=== PATIENT | male | born 1930 | race Caucasian/White ===

== ENCOUNTER 2017-01-27 01:20 | Inpatient (IN) | payer MEDICARE ==
[2017-01-27] VITALS (62 sets, daily range): BP systolic 61–138; BP diastolic 29–92; BMI 16.5
[~2017-01-27] VITALS: Ht 177.8 cm; Wt 60.0 kg
[2017-01-27 02:22] LABS: BASOPHILS 0 % (0-2); EOSINOPHILS 0 % (0-7); HEMOGLOBIN 15.4 g/dL (13.5-17.5); IMMATURE GRANULOCYTES 0.4 % (0-5); MCH 34.6 pg (26.0-34.0); MCHC 34.2 g/dL (31.0-37.0); MCV 101.1 fL (80.0-100.0); MEAN PLATELET VOLUME 10.7 fL (7.4-10.4); MONOCYTES 2.8 % (2-11); NEUTROPHILS 92.8 % (40-80); RBC 4.45 10x6/uL (4.20-6.10); RDW 14.6 % (11.5-14.5); WBC 7.7 10x3/uL (4.8-10.8)
[2017-01-27 02:26] LABS: PLATELET COUNT 228 10x3/uL (130-400)
[2017-01-27 02:46] LABS: ALBUMIN 2.9 g/dL (3.4-5.0); ANION GAP 20.8 mmol/L (8-16); BILIRUBIN - TOTAL 0.66 mg/dL (0.2-1.3); CALCIUM 9.2 mg/dL (8.5-10.1); CARBON DIOXIDE 25.6 mmol/L (21.0-32.0); CREATININE - SERUM 2.3 mg/dL (0.6-1.3); POTASSIUM - SERUM 4.4 mmol/L (3.5-5.1)
[2017-01-27 02:55] LABS: MAGNESIUM - SERUM 2.5 mg/dL (1.8-2.4)
[2017-01-27 02:59] LABS: TROPONIN-I 0.095 ng/mL (0.000-0.060)
[2017-01-27 03:04] LABS: APPEARANCE CLOUDY (CLEAR); BILIRUBIN NEGATIVE (NEGATIVE); COLOR DK YELLOW (YELLOW); GLUCOSE NEGATIVE (NEGATIVE); KETONE NEGATIVE (NEGATIVE); NITRITE NEGATIVE (NEGATIVE); PROTEIN NEGATIVE (NEGATIVE); SPECIFIC GRAVITY 1.025 (1.005-1.020); UROBILINOGEN NORMAL (NORMAL)
[2017-01-27 03:13] LABS: BACTERIA MANY /hpf (NONE SEEN); EPITHELIAL CELLS 0-5 /hpf (0-5); WHITE CELLS - URINE >50 /hpf (0-5)
[2017-01-27 03:14] LABS: GRANULAR CAST 0-5 /lpf (NONE SEEN); HYALINE CAST 0-5 /lpf (NONE SEEN)
--- NOTE | 2017-01-27 06:35 | NUR ---
ARRIVED TO ROOM VIA STRETCHER WITH 2 ER NURSES AND . ON 100% NRB MASK O2. TRANSFERRED TO ICU BED AND OLD SHEETS REMOVED FROM UNDER HIM. HAD A SMALL, LT BROWN PASTY BM. CLEANSED PERINEAL AREA. BLANCHABLE REDDENED SKIN TO BOTTOM PORTION OF TAILBONE NOTED. DUSKY COLORED NAILBEDS. ATTATCHES TO CONTINUOUS CARDIAC MONITORING AND FIRST SET OF VITALS ASSESSED AT 0645. RT HAND 20G PIV INTACT INFUSING LEVAQUIN IV @ 100ML/HR. RT AC 18G PIV INTACT WITH CARDIZEM @ 10MG/HR. AFIB IN THE 110'S WITH MULTIPLE PAC'S NOTED. UNABLE TO OBTAIN O2 SAT. WILL GET DIFFERENT MONITORING EQUIPMENT FOR THE EAR TO OBTAIN O2 SAT. 0710: UNABLE TO GET O2 SATS. David.Roberta ACOSTA MADE AWARE. BEGAN TO SHALLOW BREATHE AND HARD TO TELL IF HE WAS BECOMING APNIC. CRASH CART TO ROOM AND WILL OBTAIN ABG'S. BREATHING IRREGULAR BUT IN THE 40'S AFTER APNIC APPEARING EPISODE. AT BEDSIDE AND OBTAINING HEALTH HISTORY FROM HER. PATIENT NOT SPEAKING BUT PULLING AT BURCH AND MONITORING EQUIPMENT. 0730: REPORT GIVEN TO FILIBERTO ALTAMIRANO.
[2017-01-27 08:30] LABS: CKMB 3.7 U/L (0.0-3.6); CREATINE KINASE 322 UL (21-232); TROPONIN-I 0.152 ng/mL (0.000-0.060)
[2017-01-27 08:31] LABS: ANION GAP 25.6 mmol/L (8-16); CARBON DIOXIDE 20.5 mmol/L (21.0-32.0); CREATININE - SERUM 2.9 mg/dL (0.6-1.3); PHOSPHOROUS 6.5 mg/dL (2.5-4.9); POTASSIUM - SERUM 5.1 mmol/L (3.5-5.1)
[2017-01-27] MEDS ORDERED: BAYER CHEWABLE81 MG PO (08:32)
[2017-01-27] MEDS ORDERED: PROTONIX40 MG PO (08:32)
[2017-01-27] MEDS ORDERED: ISOSORBIDE MONO30 M1 PO (08:33)
[2017-01-27] MEDS ORDERED: STOOL SOFTENER240 MG PO (08:34)
[2017-01-27] MEDS ORDERED: CARAFATE1 G PO (08:34)
[2017-01-27] MEDS ORDERED: PEPCID20 MG PO (08:36)
[2017-01-27] MEDS ORDERED: VITAMIN B-121000 MCG PO (08:40)
[2017-01-27] MEDS ORDERED: VITAMIN B650 MG PO (08:41)
[2017-01-27] MEDS ORDERED: VITAMIN D31000 UNIT PO (08:42)
[2017-01-27 14:08] LABS: CKMB 2.6 U/L (0.0-3.6); CREATINE KINASE 107 UL (21-232)
[2017-01-27 14:09] LABS: TROPONIN-I 0.205 ng/mL (0.000-0.060)
--- NOTE | 2017-01-27 14:25 | NUR ---
DR. GALAN SPEAKING WITH DR. YANES WHO STATES HE WILL BE AROUND TO SEE PT AGAIN THIS EVENING.
--- NOTE | 2017-01-27 14:31 | HP ---
PATIENT: ARMAND SIMMONS MEDICAL RECORD: [id number] ACCOUNT: [id number] LOCATION:[facility] Marty.CV02 : 30 ADMISSION DATE: 01/27/17 HISTORY AND PHYSICAL EXAMINATION HISTORY OF PRESENT ILLNESS: Mr. Simmons is an 86-year-old white male that presents to the Emergency Room with mental status changes, weakness, and shortness of breath. He was found to be in atrial fibrillation with rapid ventricular response and admitted to the ICU. CT of his chest was performed, which reveals no PEs, changes compatible with CHF and possible free air versus dilated loops of bowel under the right hemidiaphragm. His lactic acid is elevated. His cardiac enzymes are elevated. He is now in a multifocal atrial tachycardia with frequent PVCs. He is on pressors including Levophed and I have added dobutamine. His lateral KUB has been performed and pending at this time. I have discussed with his and his children are en route from [place]. His prognosis is guarded at this time. 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 PREVIOUS SURGERIES: Include CABG, gangrene gallbladder 2-3 years ago, hip surgery from fracture, shoulder surgery, and previous hernia surgery as a young man. ALLERGIES: None known. HOME MEDICATIONS: Include pantoprazole 40 mg once a day, baby aspirin a day, isosorbide mononitrate 30 mg once a day, docusate daily, Carafate daily a.c. and at bedtime, famotidine 20 mg twice a day, B12 1000 mg once a day, B6 50 mg twice a day, and vitamin D 4000 international units a day. FAMILY HISTORY: Noncontributory. SOCIAL HISTORY: The patient is . He has been a smoker, but quit 30 years ago. Seldom drinks. REVIEW OF SYSTEMS: Two-three days ago, states he was doing well. The last few days, he has deteriorated with overall weakness, shortness of breath, and difficulties communicating. She is unaware of any fever at home. No vomiting or diarrhea. Decreased oral intake. PHYSICAL EXAMINATION: GENERAL: Ill-appearing cachectic elderly male in moderate distress. HEENT: Sclerae nonicteric. Mucous membranes are dry. NECK: Soft and supple. HEART: Regular with mild tachycardia with multiple extrasystoles. LUNGS: Diminished breath sounds. ABDOMEN: Soft. LOWER EXTREMITIES: Reveal no edema. IMPRESSION: 1. Respiratory failure, probably, acute on chronic. 2. Cardiac arrhythmia. HISTORY AND PHYSICAL [id number] ARMAND SIMMONS 3. Probable sepsis. 4. Ruling out perforated bowel. 5. Known coronary artery disease. 6. Chronic obstructive pulmonary disease. 7. History of cerebrovascular accident and coronary artery disease. 8. Hypotension. PLAN: ICU. I have discussed with , she is waiting for family to get here to discuss code status. Cultures are done. Lateral decubs are ordered and awaiting those. Cardiology consult and pulmonary consult with Dr. Diaz. Prognosis is guarded at this time. TRANSINT:[id number] Voice Confirmation ID: [id number] DOCUMENT ID: [id number] GLADYS MATTSON DO at 1431 CC: [id number] DICTATION DATE: 01/27/1751 MACHINE GROUP LEADER: 01/27/17 1159 ADM IN [facility] [address] [id number]
--- NOTE | 2017-01-27 14:35 | NUR ---
NGT PLACEMENT PER ORDER OF JENNIFER JALLOH AND JOAQUÍN. XRAY AT BEDSIDE.
--- NOTE | 2017-01-27 14:50 | NUR ---
DR. GALAN REVIEWED CXR. NGT REMOVED DUE TO INCORRECT PLACEMENT.
--- NOTE | 2017-01-27 15:15 | NUR ---
OGT PLACED PER BELINDA ALTAMIRANO. PLACEMENT CONFIRMED BY GASTRIC CONTENT ASPIRATION.
--- NOTE | 2017-01-27 15:30 | NUR ---
DR. DREW PAGED THROUGH ANSWERING SERVICE.
--- NOTE | 2017-01-27 18:10 | NUR ---
LINENS CHANGED. PT CLEANED OF SMEAR OF BM.
--- NOTE | 2017-01-27 18:55 | NUR ---
SEE MAR FOR MED ADMINISTRATIONS. VASOPRESSIN TITRATED FOR BP.
--- NOTE | 2017-01-27 19:15 | NUR ---
REPORT RECVD. CARE ASSUMED. INITIAL ASSMNT COMPLETED. SEE FLOWSHEET FOR ALL FINIDNGS. LETHARGIC. AROUSES TO VOICE. NON VERBAL. PERRLA. REACHES FOR NRB MASK. RESTRAINTS IN USE. RESP SHALLOW AND TACHY. SPO2 DIFFICULT TO TRACK. 91% ON 15LPM NRB. LUNGS WITH RALES THRU OUT. DIM IN BASES. UCAFIB WITH FREQ PVCS ON THE MONITOR. HYPOTENSIVE. PRESSOR SUPPORT IN PROGRESS. IVF TO RIGHT SC CVL. PULSES WEAK WITH DOPPLER. SCDS IN USE. AFEBRILE. ABD SOFT. OGT TO LIWS. BOWEL SOUNDS SCANT. F/C PATENT WITH MINIMAL CONCENTRATED UOP. NO S/S OF DISCOMFORT. HOB UP. CONT CURRENT POC.
--- NOTE | 2017-01-27 19:19 | NUR ---
NOTIFIED DR. DREW OF CURRENT VITALS AND LAB VALUES AND MEDICATION RATES . NO NEW ORDERS RECEIVED. VERIFIED THAT FLUID BOLUS ORDER IS CORRECT. STATES THAT IT IS.
--- NOTE | 2017-01-27 20:16 | NUR ---
FAMILY AT BEDSIDE. UPDATE GIVEN.
[2017-01-27 20:59] LABS: CALC OSMOLALITY 327 mosm/kg (275-300); CARBON DIOXIDE 19.7 mmol/L (21.0-32.0); CHLORIDE - SERUM 112 mmol/L (98-107); CKMB 5.7 U/L (0.0-3.6); CREATININE - SERUM 2.4 mg/dL (0.6-1.3); GLUCOSE 164 mg/dL (74-106); SODIUM 149 mmol/L (136-145); UREA NITROGEN 90 mg/dL (7-18); eGFR NON AFRICAN AMERICAN 27 mL/min (90-120)
[2017-01-27 21:02] LABS: CALCIUM 7.9 mg/dL (8.5-10.1); CREATINE KINASE 237 UL (21-232)
[2017-01-27 21:03] LABS: TROPONIN-I 0.163 ng/mL (0.000-0.060)
--- NOTE | 2017-01-27 23:15 | NUR ---
REASSESSMENT COMPLETED. SEE FLOWSHEET FOR ALL FINIDNGS. LETHARGIC. AROUSES TO VOICE. NON VERBAL. PERRLA. REACHES FOR NRB MASK. RESTRAINTS IN USE. RESP SHALLOW AND TACHY. SPO2 DIFFICULT TO TRACK. 91% ON 15LPM NRB. LUNGS WITH RALES THRU OUT. DIM IN BASES. UCAFIB WITH FREQ PVCS ON THE MONITOR. HYPOTENSIVE. PRESSOR SUPPORT IN PROGRESS. IVF TO RIGHT SC CVL PULSES WEAK WITH DOPPLER. SCDS IN USE. AFEBRILE. ABD SOFT. OGT TO LIWS. BOWEL SOUNDS SCANT. F/C PATENT WITH MINIMAL CONCENTRATED UOP. NO S/S OF DISCOMFORT. HOB UP. CONT CURRENT POC.
[2017-01-28] VITALS (92 sets, daily range): BP systolic 90–137; BP diastolic 52–92; Ht 177.8 cm; Wt 60.0 kg
--- NOTE | 2017-01-28 01:15 | NUR ---
TURNED AND REPOSITIONED. ORAL CARE PROVIDED. NPO. LEVOPHED TITRATION IN PROGRESS. UCAFIB SEEN. SYS B/P AND CVP WITHIN PARAMETERS. HOB UP. CONT CURRENT POC.
--- NOTE | 2017-01-28 05:10 | NUR ---
REPOSITIONED. REMAINS ON PRESSOR SUPPORT. ABGS IMPROVED. REMAINS LETHARGIC AND NON VERBAL. HOB UP. CONT CURRENT POC.
[2017-01-28 06:23] LABS: ALBUMIN 1.8 g/dL (3.4-5.0); ALKALINE PHOSPHATASE 45 U/L (46-116); ALT (SGPT) 19 U/L (10-68); BILIRUBIN - TOTAL 0.45 mg/dL (0.2-1.3); CALC OSMOLALITY 324 mosm/kg (275-300); CALCIUM 7.1 mg/dL (8.5-10.1); CHLORIDE - SERUM 112 mmol/L (98-107); CKMB 5.7 U/L (0.0-3.6); CREATINE KINASE 206 UL (21-232); CREATININE - SERUM 1.5 mg/dL (0.6-1.3); GLUCOSE 226 mg/dL (74-106); MAGNESIUM - SERUM 1.7 mg/dL (1.8-2.4); PHOSPHOROUS 2.5 mg/dL (2.5-4.9); PROTEIN - SERUM 5.6 g/dL (6.4-8.2); SODIUM 149 mmol/L (136-145); TROPONIN-I 0.225 ng/mL (0.000-0.060); UREA NITROGEN 73 mg/dL (7-18); eGFR NON AFRICAN AMERICAN 47 mL/min (90-120)
[2017-01-28 07:15] LABS: BASOPHILS 0 % (0-2); EOSINOPHILS 0.9 % (0-7); IMMATURE GRANULOCYTES 2.5 % (0-5); LYMPHOCYTES 4.9 % (15-50); MCH 33.4 pg (26.0-34.0); MCHC 32.8 g/dL (31.0-37.0); MEAN PLATELET VOLUME 10.9 fL (7.4-10.4); MONOCYTES 2.2 % (2-11); NEUTROPHILS 89.5 % (40-80); PLATELET COUNT 190 10x3/uL (130-400); RDW 14.7 % (11.5-14.5); WBC 6.5 10x3/uL (4.8-10.8)
[2017-01-28 07:32] LABS: HEMOGLOBIN 11.8 g/dL (13.5-17.5); RBC 3.53 10x6/uL (4.20-6.10)
--- NOTE | 2017-01-28 08:00 | NUR ---
OGT IN PT'S MOUTH. NOT IN CORRECT POSITION. D/C'D. PT TOLERATED WELL.
--- NOTE | 2017-01-28 09:01 | NUR ---
DR. YANES AT BEDSIDE SPEAKING WITH PT'S AND DAUGHTER.
--- NOTE | 2017-01-28 10:00 | NUR ---
RIGHT NARE NGT PLACED PER MD ORDERS. PT TOLERATED WELL. PLACEMENT VERIFIEID WITH AIR BOLUS. THICK BROWN LIQUID NOTED IN SUCTION CANNISTER. APPROX 400CC OF GASTRIC FLUID RETURNED. PLACED TO LIS. 16FR USED.
--- NOTE | 2017-01-28 11:30 | NUR ---
* How many steps to enter\exit or inside your home? 1 0 * [facility] * [facility] * Preadmission Environment Home with Family 0 * ADLs Partial Dependent 0 * Partial ADLs (Assistance needed) Ambulation Bathing Dressing Medication Management Toileting Transfers 0 * Equipment Bedside Commode Cane Hospital Bed Rolling Walker Shower Chair Wheelchair 0 * List name and contact numbers for known caregivers / representatives who currently or will assist patient after discharge: Spouse - Calli [phone] DIL - Hamlet [phone] 0 * Additional services required to return to the preadmission environment? Yes 0 * Can the patient safely return to the preadmission environment? Yes 0 * Has this patient been hospitalized within the prior 30 days at any hospital? No Patient Name: ARMAND BAILEY Admission Status: ER Accout number: [id number] Admission Date: 01-27-2017 : 1930 Admission Diagnosis: Attending: GLADYS MATTSON Current LOS: 1 Planned Disposition: Home with Home Health Primary Insurance: [employer] Discharge Planning Comments: CM met with patient, spouse & daughter in law to assess dc plans/needs. Spouse reports patient lives at home with her. She states her son & his family also live in the home. Their daughter in law, Hamlte, is a home health RN. He has all necessary DME at home including a hospital bed, WC, RW, BSC, & Shower Bench. They are interested in home health services at discharge. Discussed [facility] options - they do not want to transfer to [facility] but prefer to stay here at [facility] under his Medicare Benefits. CM will follow & assist as needed. Supervisor Shuttle Veneering: Ayana Chew
--- NOTE | 2017-01-28 14:49 | NUR ---
Spoke with Seema @ [facility] Expeditor [facility] - notified her patient/family does not want to transfer to [place].
--- NOTE | 2017-01-28 16:20 | NUR ---
DR. AMBROCIO AT BEDSIDE TPM CHANGED TO VVI 60 VMA 10 PT IS V-SENSING. HR 88. SINUS RHYTHM WITH PVCs
--- NOTE | 2017-01-28 19:00 | NUR ---
Received patient resting in bed with eyes closed, assessment completed per flowsheet. Patient confused/disoriented to time/place/situation, calm and follows commands. R eye slightly cloudy with brisk response @ 4mm, L eye cloudy with pupil not visible. NGT R nare to LIWS, green mucoid drainage. S1/S2 noted Uncontrolled afib with HR 126, irregular. Breathing is shallow and unlabored on 5L via NC with O2 sat 97%, Crackles noted bilateral upper and mid with diminished lower. Abdomen is distended, bowel sounds Hypoactive x4. Malik secured in place, scant concentrated yellow urine. Full ROM all extremities with weakness noted, all pulses detected by doppler with cap refill < 3 sec. R subclavian CVL dressing CDI, D5W @ 75ml/hr / Dobutamine @ 5mcg/kg/min / Vasopressin @ 0.04 unit/min / Norepinephrine @ 6 mcg/min. Wrist restraints in use to protect safety, patient pulling at lines/tubes. Oral care and repositioning provided, no further needs at this time. All VSS and will continue to monitor.
--- NOTE | 2017-01-28 21:00 | NUR ---
HS meds given without difficulty, patient status unchanged from previous assessment. Patient remains disoriented, calm and follows commands. Patient shakes head "no" when asked about pain, repositioned for comfort. Will continue to monitor.
--- NOTE | 2017-01-28 23:00 | NUR ---
Reassessment completed per flowsheet, patient resting in bed with eyes closed. Patient disoriented to time/place/situation with garbled speech, calm and cooperative. S1/S2 noted Uncontrolled Afib with PVC and HR 112, irregular. Breathing is shallow on 5L via NC with O2 sat 98%, crackles noted bilateral upper and mid with diminished lower. Abdomen is distended with bowel sounds hypoactive x4, non-tender. All pulses detected by doppler with cap refill < 3 sec, full ROM all extremities with moderate weakness noted. Oral care provided, patient repositioned for comfort. No further needs at this time, all VSS and will continue to monitor.
[2017-01-29] VITALS (93 sets, daily range): BP systolic 90–137; BP diastolic 52–95
--- NOTE | 2017-01-29 01:00 | NUR ---
Patient resting in bed with eyes closed, breathing is shallow on 5L via NC with O2 sat 95%. Uncontrolled afib with PVC on monitor, S1/S2 noted irregular. Patient attempts to speak, extremely soft and difficult to hear. Denies pain or other needs at this time, all VSS and will continue to monitor.
--- NOTE | 2017-01-29 03:00 | NUR ---
Reassessment completed per flowsheet, patient resting in bed with eyes closed. Patient appears to be more alert and communicates in limited fashion. Attempts to speak but voice is very quiet, continues to have moments of confusion. NGT secured to LIWS, scant green drainage noted. S1/S2 noted Uncontrolled Afib with PVC and HR 122 on telemetry. Breathing is shallow on 5L via NC with O2 sat 96%, crackles noted bilateral upper and mid with diminished lower. All pulses detected with doppler, cap refill < 3 sec with skin cool/dry to touch. Oral care provided, patient repositioned for comfort. Denies pain or other needs at this time, all VSS and will continue to monitor.
--- NOTE | 2017-01-29 04:45 | NUR ---
Patient Vasopressin out, none available on unit. Vasopressin unit mixed to ordered concentration by Cyrus ALTAMIRANO. Will notify pharmacy in AM.
--- NOTE | 2017-01-29 05:00 | NUR ---
Patient resting in bed with eyes open, nods head to respond to yes/no questions appropriately. Oral care provided, patient repositioned for comfort. Patient denies further needs at this time, all VSS and will continue to monitor.
--- NOTE | 2017-01-29 06:00 | NUR ---
AM labs collected without difficulty, patient laying in bed with eyes open. Patient repositioned for comfort, no further needs at this time. All VSS and will continue to monitor.
[2017-01-29 06:30] LABS: BASOPHILS 0 % (0-2); EOSINOPHILS 0.3 % (0-7); HEMATOCRIT 32.1 % (42.0-54.0); HEMOGLOBIN 10.8 g/dL (13.5-17.5); IMMATURE GRANULOCYTES 1.3 % (0-5); LYMPHOCYTES 7.3 % (15-50); MCH 34.3 pg (26.0-34.0); MCHC 33.6 g/dL (31.0-37.0); MCV 101.9 fL (80.0-100.0); MEAN PLATELET VOLUME 11.1 fL (7.4-10.4); MONOCYTES 2.2 % (2-11); NEUTROPHILS 88.9 % (40-80); PLATELET COUNT 153 10x3/uL (130-400); RBC 3.15 10x6/uL (4.20-6.10); RDW 14.7 % (11.5-14.5); WBC 6.3 10x3/uL (4.8-10.8)
[2017-01-29 07:14] LABS: CALCIUM 7.5 mg/dL (8.5-10.1); CARBON DIOXIDE 27.8 mmol/L (21.0-32.0); CHLORIDE - SERUM 109 mmol/L (98-107); MAGNESIUM - SERUM 1.8 mg/dL (1.8-2.4); PRO BNP 6081 pg/mL (0-450); SODIUM 146 mmol/L (136-145)
[2017-01-29 07:16] LABS: CALC OSMOLALITY 305 mosm/kg (275-300); CREATININE - SERUM 0.8 mg/dL (0.6-1.3); GLUCOSE 141 mg/dL (74-106); TROPONIN-I 0.199 ng/mL (0.000-0.060); UREA NITROGEN 49 mg/dL (7-18); eGFR NON AFRICAN AMERICAN > 90 mL/min (90-120)
[2017-01-29 07:17] LABS: PHOSPHOROUS 1.4 mg/dL (2.5-4.9); POTASSIUM - SERUM 2.7 mmol/L (3.5-5.1)
--- NOTE | 2017-01-29 07:40 | NUR ---
SPOKE WITH PEEWEE PRABHAKAR ASSET PROTECTION DETECTIVE FOR DR. GUEVARA, INFORMED OF K+ AND PHOS LAB RESULTS, NEW ORDER RECEIVED FOR ELECTROLYTE PROTOCOL.
--- NOTE | 2017-01-29 09:40 | NUR ---
DR. GUEVARA HERE IN TO SEE PATIENT, AT BEDSIDE.
--- NOTE | 2017-01-29 10:58 | NUR ---
DR. LI HERE IN TO SEE PATIENT.
--- NOTE | 2017-01-29 11:14 | OP ---
PATIENT NAME: ARMAND BAILEY MEDICAL RECORD: [id number] :30 LOCATION:D.[facility]I D.CV02 ADMISSION DATE:01/27/17 SURGEON: KAIA YANES MD DATE OF OPERATION: 01/27/2017 PREOPERATIVE DIAGNOSES: 1. Need for IV access. 2. Sepsis. 3. Pneumonia. 4. Atrial fibrillation. 5. Coronary artery disease. POSTOPERATIVE DIAGNOSES: 1. Need for IV access. 2. Sepsis. 3. Pneumonia. 4. Atrial fibrillation. 5. Coronary artery disease. PROCEDURE IN DETAIL: Right subclavian vein triple-lumen central venous line placement. SURGEON: Kaia Yanes MD REPORT OF PROCEDURE: The patient's right chest was prepped and draped in sterile fashion, 3 cc of 1% lidocaine was infused into the subcutaneous tissues. A needle was used to cannulate the right subclavian vein. The guidewire was advanced with ease. Over this wire, a dilator was placed followed by the triple lumen catheter. The catheter aspirated nonpulsatile dark blood and flushed easily in all 3 ports. This was sutured into place with 3-0 silk ties and dressed appropriately. COMPLICATIONS: None. CONDITION: Stable. ANESTHESIA: Local. BLOOD LOSS: Minimal. Procedure done at the bedside. TRANSINT:[id number] Voice Confirmation ID: [id number] DOCUMENT ID: [id number] KAIA YANES MD at 1114 CC: [id number] DICTATION DATE: 01/27/17 1401 AUTO INSPECTION SPECIALIST: 01/27/17 1433 ADM IN [id number] [place] [address]
--- NOTE | 2017-01-29 11:41 | NUR ---
SPOKE WITH ON PHONE AND SHE IS ON HER WAY TO HOSPITAL TO SIGN CONSENT FOR BRONCHOSCOPY.
--- NOTE | 2017-01-29 12:31 | NUR ---
ZOFRAN 4MG GIVEN PER MD ORDER PRIOR TO BRONCHOSCOPY.
--- NOTE | 2017-01-29 13:04 | NUR ---
NOTIFIED DR. YANES PER REQUEST OF DR. LI THAT NGT IS COILED IN HERNIA PER XRAY, NO FURTHER ORDERS RECEIVED FROM DR. YANES.
--- NOTE | 2017-01-29 15:00 | NUR ---
PATIENT REPOSITION FOR COMFORT AND SKIN CARE. NO DISTRESS NOTED. CALL LIGHT WIHTIN REACH, BED IN LOW POSITION.
--- NOTE | 2017-01-29 17:00 | NUR ---
NO CHANGES IN CONDITION. BURCH INTACT. CVL INTACT AND PATIENT.
[2017-01-29 18:17] LABS: CALC OSMOLALITY 300 mosm/kg (275-300); CALCIUM 7.6 mg/dL (8.5-10.1); CARBON DIOXIDE 28.7 mmol/L (21.0-32.0); CHLORIDE - SERUM 110 mmol/L (98-107); CREATININE - SERUM 0.8 mg/dL (0.6-1.3); GLUCOSE 119 mg/dL (74-106); SODIUM 145 mmol/L (136-145); UREA NITROGEN 42 mg/dL (7-18); eGFR NON AFRICAN AMERICAN > 90 mL/min (90-120)
[2017-01-29 18:19] LABS: POTASSIUM - SERUM 3.9 mmol/L (3.5-5.1)
[2017-01-29 18:21] LABS: PHOSPHOROUS 1.2 mg/dL (2.5-4.9)
--- NOTE | 2017-01-29 19:00 | NUR ---
report received and assessment completed. see flowsheet for full details. pt is on vasopressin, and dobutamine drips at this time. currently in controlled afib. pt is now a DNR. hypoactive bowel sounds at this time. pt is on lis via ngt in right nare. will monitor closely throughout shift
--- NOTE | 2017-01-29 21:00 | NUR ---
2100 MEDS GIVEN. WILL COONTINUE TO MONITOR
--- NOTE | 2017-01-29 21:00 | NUR ---
REPORT RECEIVED AND ASSESSMENT COMPLETED. SEE FLOWSHEET FOR FULL DETAILS. PT IS CONFUSED AND A LITTLE LETHARGIC. DENIES PAIN AT THIS TIME. NGT RIGHT NARE LIS. BOWEL SOUNDS ACTIVE. PT IS A DNR. AFIB AT THIS TIME. WILL MONITOR CLOSELY THROUGHOUT SHIFT.
--- NOTE | 2017-01-29 23:00 | NUR ---
REASSESSMENT COMPLETED. SEE FLOWSHEET FOR FULL DETAILS. PT NOW OFF VASOPRESSIN. WILL CONTINUE TO TITRATE OFF MEDS TOLERATED.
[2017-01-30] VITALS (25 sets, daily range): BP systolic 101–149; BP diastolic 55–94
--- NOTE | 2017-01-30 01:00 | NUR ---
NO CHANGES IN STATUS AT THIS TIME. PT REPOSITIONED FOR COMFORT. WILL CONTINUE TO MONITOR
--- NOTE | 2017-01-30 03:00 | NUR ---
REASSESSMENT COMPLETED SEE FLOWSHEET FOR FULL DETAILS
--- NOTE | 2017-01-30 05:00 | NUR ---
NO CHANGES IN STATUS AT THIS TIME. WILL CONTINUE TO MONITOR
--- NOTE | 2017-01-30 06:00 | NUR ---
PT PULLED NG TUBE OUT DESPITE RESTRAINTS. WILL ATTEMPT TO REPLACE
[2017-01-30 06:47] LABS: BASOPHILS 0 % (0-2); EOSINOPHILS 0.7 % (0-7); HEMATOCRIT 35.1 % (42.0-54.0); HEMOGLOBIN 11.1 g/dL (13.5-17.5); IMMATURE GRANULOCYTES 0.4 % (0-5); MCH 31.1 pg (26.0-34.0); MCHC 31.6 g/dL (31.0-37.0); MEAN PLATELET VOLUME 10.5 fL (7.4-10.4); MONOCYTES 3.6 % (2-11); NEUTROPHILS 87.3 % (40-80); PLATELET COUNT 141 10x3/uL (130-400); RBC 3.57 10x6/uL (4.20-6.10); RDW 14.4 % (11.5-14.5); WBC 5.5 10x3/uL (4.8-10.8)
[2017-01-30 06:51] LABS: MCV 98.3 fL (80.0-100.0)
[2017-01-30 07:14] LABS: CALC OSMOLALITY 292 mosm/kg (275-300); CALCIUM 7.9 mg/dL (8.5-10.1); CARBON DIOXIDE 27.6 mmol/L (21.0-32.0); CHLORIDE - SERUM 109 mmol/L (98-107); CREATININE - SERUM 0.7 mg/dL (0.6-1.3); GLUCOSE 104 mg/dL (74-106); MAGNESIUM - SERUM 1.6 mg/dL (1.8-2.4); POTASSIUM - SERUM 3.7 mmol/L (3.5-5.1); SODIUM 144 mmol/L (136-145); eGFR NON AFRICAN AMERICAN > 90 mL/min (90-120)
--- NOTE | 2017-01-30 07:15 | NUR ---
PT ALERT, VSS, O2 5L OXYMISER, NGT LIS DARK OUTPUT, RIGHT SUBCLAVIAN CVL INFUSING, CDI, BURCH IN PLACE, REPOSITIONED, DENIES PAIN, SEE SHIFT ASSESSMENT
[2017-01-30 07:26] LABS: PHOSPHOROUS 1.9 mg/dL (2.5-4.9); UREA NITROGEN 30 mg/dL (7-18)
--- NOTE | 2017-01-30 09:20 | NUR ---
PT REPOSITIONED, VSS, NO SIGNS OF PAIN, ELECTROLYTES INFUSING PER ELECTROLYTE PROTOCOL, WILL CONTINUE TO MONITOR
--- NOTE | 2017-01-30 09:41 | NUR ---
Nutrition Follow Up: Chart reviewed. Pt continues NPO. NGT to LIS. +BM 01/27/17. Meds and labs reviewed. Rec advancing diet if/when medically feasible. If diet unable to advance within the next 24 hours rec start nutritional support. RD following.
--- NOTE | 2017-01-30 11:21 | NUR ---
TOTAL BED BATH AND LINEN CHANGE DONE, VSS, DENIES PAIN, CALL LIGHT WITHIN REACH, SEE REASSESSMENT FLOWSHEET
--- NOTE | 2017-01-30 13:00 | NUR ---
PT REPOSITIONED, VSS, DENIES PAIN, CONTRAST PER NGT, WILL CONTINUE TO MONITOR
--- NOTE | 2017-01-30 13:57 | NUR ---
PT TO CT WITH STAFF
--- NOTE | 2017-01-30 15:04 | NUR ---
PT REPOSITIONED, VSS, NGT TO LIS WHEN RETURNED FROM CT, CONTINUES IN AFIB, NO SIGNS OF PAIN, WILL CONTINUE TO MONITOR
[2017-01-30 15:25] LABS: ACID FAST SMEAR Negative (()); AFB SPECIMEN PROCESSING Concentration (()); FUNGUS STAIN Final report (())
--- NOTE | 2017-01-30 17:13 | NUR ---
PT REPOSITIONED, VSS, NO SIGNS OF PAIN, AT BEDSIDE FOR VISITATION, NO CHANGES NOTED, WILL CONTINUE TO MO NITOR
--- NOTE | 2017-01-30 19:00 | NUR ---
REPORT RECEIVED AND ASSESSMENT COMPLETED. PT STILL HAS NGT IN PLACE AT THIS TIME. D5W RUNNING AT 100 AT THIS TIME. PT HAS ACTIVE BOWEL SOUNDS, AND LUNGS ARE CLEAR IN UPPER LOBES; HOWEVER, DIMMINISHED BILATERALLY OTHERWISE. WILL CONTINUE TO MONITOR.
--- NOTE | 2017-01-30 21:00 | NUR ---
2100 MEDS GIVEN. NO CHANGES IN STATUS AT THIS TIME. WILL CONTINUE TO MONITOR
--- NOTE | 2017-01-30 23:00 | NUR ---
REASSESSMENT COMPLETED SEE FLOWSHEET FOR FULL DETYAILS. 600 OUT OF NGT SUCTION CANASTER CHANGED AT THIS TIME. WILL CONTINUE TO MONITOR
[2017-01-31] VITALS (24 sets, daily range): BP systolic 88–131; BP diastolic 44–80
--- NOTE | 2017-01-31 01:00 | NUR ---
NO CHANGES IN STATUS AT THIS TIME WILL CONTINUE TO MONITOR
--- NOTE | 2017-01-31 03:00 | NUR ---
REASSESSMENT COMPLETED SEE FLOWSHEET FOR FULL DETAILS. PT HAS HAD A LARGE VOLUME OUT FROM NGT SUCTION SO FAR THIS SHIFT. WILL CONTINUE TO MONITOR CLOSELY. VSS.
--- NOTE | 2017-01-31 05:00 | NUR ---
RADIOLOGY AT [facility] FOR AM IMAGING. I&O COLLECTED. WILL CONTINUE TO MONITOR
[2017-01-31 06:26] LABS: BASOPHILS 0 % (0-2); EOSINOPHILS 1.4 % (0-7); HEMATOCRIT 36.5 % (42.0-54.0); HEMOGLOBIN 11.7 g/dL (13.5-17.5); IMMATURE GRANULOCYTES 0.2 % (0-5); LYMPHOCYTES 10.9 % (15-50); MCH 31.7 pg (26.0-34.0); MCHC 32.1 g/dL (31.0-37.0); MCV 98.9 fL (80.0-100.0); MEAN PLATELET VOLUME 10.6 fL (7.4-10.4); MONOCYTES 3.6 % (2-11); NEUTROPHILS 83.9 % (40-80); PLATELET COUNT 142 10x3/uL (130-400); RBC 3.69 10x6/uL (4.20-6.10); RDW 14.5 % (11.5-14.5); WBC 4.4 10x3/uL (4.8-10.8)
[2017-01-31 07:02] LABS: ALBUMIN 1.9 g/dL (3.4-5.0); ALKALINE PHOSPHATASE 48 U/L (46-116); ALT (SGPT) 24 U/L (10-68); BILIRUBIN - TOTAL 0.47 mg/dL (0.2-1.3); CALC OSMOLALITY 284 mosm/kg (275-300); CALCIUM 8.1 mg/dL (8.5-10.1); CHLORIDE - SERUM 107 mmol/L (98-107); CREATININE - SERUM 0.6 mg/dL (0.6-1.3); GLUCOSE 111 mg/dL (74-106); MAGNESIUM - SERUM 1.8 mg/dL (1.8-2.4); PHOSPHOROUS 2.1 mg/dL (2.5-4.9); POTASSIUM - SERUM 3.4 mmol/L (3.5-5.1); PROTEIN - SERUM 5.5 g/dL (6.4-8.2); SODIUM 142 mmol/L (136-145); eGFR NON AFRICAN AMERICAN > 90 mL/min (90-120)
[2017-01-31 07:03] LABS: UREA NITROGEN 15 mg/dL (7-18)
--- NOTE | 2017-01-31 07:15 | NUR ---
PT IN BED, ALERT, SPEECH GARBLED, VSS, DENIES PAIN, NGT TO LIS, OXIMISER 5L O2, RIGHT SUBCLAVIAN CVL DRESSING CDI, D5W 100ML/HR, AWAITING CHEM PANEL FOR ELECTROLYTE PROTOCOL, BURCH DRAINING CLEAR YELLOW URINE, SCDS IN PLACE, SEE SHIFT ASSESSMENT
--- NOTE | 2017-01-31 09:00 | NUR ---
TREATING KCL AND PHOSPHORUS PER ELECTROLYTE PROTOCOL, IN ROOM AND UPDATE GIVEN, VSS, NO SIGNS OF PAIN, REPOSITIONED, WILL CONTINUE TO MONITOPR
--- NOTE | 2017-01-31 11:02 | NUR ---
BED BATH AND LINEN CHANGE COMPLETE, VSS, NO SIGNS OF PAIN, REPOSITIONED, SEE REASSESSMENT FLOWSHEET
--- NOTE | 2017-01-31 12:50 | NUR ---
PT REPOSITIONED DURING KUB, VSS, NO SIGNS OF PAIN, WILL CONTINUE TO MONITOR
--- NOTE | 2017-01-31 14:53 | NUR ---
PT CONTINUES TO ATTEMPT TO PULL LINES DURING REPOSITIONING, FIRST ATTEMPTING TO PULL NGT, THEN CVL, WHEN RESTRAINTS ARE TIED HE TRIES TO PULL CATHETER IF WITHIN REACH, REPOSITIONS OUT OF REACH BUT PT SHIFTS LEGS TO ATTEMPT TO PULL, ATTEMPTED TO REORIENTATE WITH NO SUCCESS
--- NOTE | 2017-01-31 17:00 | NUR ---
PT REPOSITIONED VSS DENIES PAIN CALL LIGHT WITHIN REACH WILL CONTINNUE TO MONITOR
--- NOTE | 2017-01-31 19:00 | NUR ---
REPORT RECEIVED AND ASSESSMENT COMPLETED. SINCE LAST CARE, PT HAD PULLED NGT AGAIN DESPITE RESTRAINTS. SEE FLOWSHEET FOR FULL DETAILS.
--- NOTE | 2017-01-31 21:00 | NUR ---
2100 MEDS GIVEN. PT REPOSITIONED FOR COMFORT. WILL MONITOR
--- NOTE | 2017-01-31 23:00 | NUR ---
REASSESSMENT COMPLETED. SEE FLOWSHEET FOR FULL DETAILS.PT B/P HAS BEEN DECREASED THROUGHOUT SHIFT; HOWEVER, MAP REMAINS ABOVE 60. WILL CONTINUE TO MONITOR
[2017-02-01] VITALS (30 sets, daily range): BP systolic 87–122; BP diastolic 40–87
--- NOTE | 2017-02-01 01:00 | NUR ---
PARTIAL BEDBATH AND LINEN CHANGE PERFORMED AT THIS TIME. NO OTHER CHANGES IN STATUS. WILL CONTUINUE TO MONITOR
--- NOTE | 2017-02-01 03:00 | NUR ---
REASSESSMENT COMPLETED. SEE FLOWSHEET FOR FULL DETAILS. PT HR HAS HAD 2 BREIF PERIODS OF BRADYCARDIA BEFORE RETURNING TO BASELINE. WILL MONITOR CLOSELY.
[2017-02-01 06:33] LABS: BASOPHILS 0 % (0-2); EOSINOPHILS 1.8 % (0-7); HEMATOCRIT 33.4 % (42.0-54.0); HEMOGLOBIN 10.7 g/dL (13.5-17.5); IMMATURE GRANULOCYTES 0.5 % (0-5); LYMPHOCYTES 11.9 % (15-50); MCH 31.3 pg (26.0-34.0); MCV 97.7 fL (80.0-100.0); MEAN PLATELET VOLUME 10.8 fL (7.4-10.4); MONOCYTES 4.1 % (2-11); NEUTROPHILS 81.7 % (40-80); PLATELET COUNT 140 10x3/uL (130-400); RBC 3.42 10x6/uL (4.20-6.10); RDW 14.5 % (11.5-14.5); WBC 4.4 10x3/uL (4.8-10.8)
[2017-02-01 06:58] LABS: ALBUMIN 1.7 g/dL (3.4-5.0); ALKALINE PHOSPHATASE 39 U/L (46-116); ALT (SGPT) 19 U/L (10-68); BILIRUBIN - TOTAL 0.36 mg/dL (0.2-1.3); CALC OSMOLALITY 281 mosm/kg (275-300); CALCIUM 7.8 mg/dL (8.5-10.1); CARBON DIOXIDE 29.1 mmol/L (21.0-32.0); CHLORIDE - SERUM 107 mmol/L (98-107); CREATININE - SERUM 0.5 mg/dL (0.6-1.3); GLUCOSE 99 mg/dL (74-106); MAGNESIUM - SERUM 1.6 mg/dL (1.8-2.4); PHOSPHOROUS 2.6 mg/dL (2.5-4.9); POTASSIUM - SERUM 3.6 mmol/L (3.5-5.1); PROTEIN - SERUM 4.8 g/dL (6.4-8.2); SODIUM 142 mmol/L (136-145); UREA NITROGEN 11 mg/dL (7-18); eGFR NON AFRICAN AMERICAN > 90 mL/min (90-120)
--- NOTE | 2017-02-01 09:33 | NUR ---
Patient Name: ARMAND BAILEY Encounter No: [id number] : 1930 Primary Insurance: MEDICARE A & B Planned Disposition: Home with Home Health DCP follow-up note: Family in agreement with discharge plan. No changes to plan @ this time, but may need to consider hospice options. Case management will follow and assist as needed. Ayana Chew
--- NOTE | 2017-02-01 12:15 | NUR ---
Nutrition Follow Up: Chart reviewed. Pt continues NPO. Noted pt pulled NGT out. +BM 01/27/17. Wt gain noted. Labs and meds reviewed. Rec consider starting Procalamine. RD following.
--- NOTE | 2017-02-01 19:30 | NUR ---
RECEIVED CARE OF PT, ASSESSMENT PER FLOWSHEET. PT LETHARGIC BUT AROUSES TO VOICE, ORIENTED TO NAME ONLY, SPEECH IS MUMBLED AND DIFFICULT TO UNDERSTAND AT TIMES, HR CAF AT A RATE OF 73 ON MONITOR, PPP, BURCH CATH PATENT WITH CONCENTRATED SURAJ URINE IN TUBING, NGT TO LIWS-DARK GREEN DRAINAGE NOTED, PLACEMENT VERIFIED WITH AUSCULTATION OF SMALL AIR BOLUS, O2 AT 5L OXI, WILL MONITOR.
--- NOTE | 2017-02-01 21:18 | NUR ---
DECREASED SBP NOTED, DOBUTAMINE GTT RE-STARTED PER MD ORDER. WILL MONITOR.
--- NOTE | 2017-02-01 23:15 | NUR ---
REASSESSMENT PER FLOWSHEET, SEE FOR DETAILS. HR REMAINS CAF AT A RATE OF 97 ON CM, MONITORING BP CLOSELY, CONT POC.
[2017-02-02] VITALS (77 sets, daily range): BP systolic 83–115; BP diastolic 40–75
--- NOTE | 2017-02-02 01:40 | NUR ---
PT RESTING QUIETLY IN BED WITH EYES CLOSED, VSS, CONT TO MONITOR.
--- NOTE | 2017-02-02 03:00 | NUR ---
REASSESSMENT PER FLOWSHEET, REPOSITIONED FOR COMFORT SUPPORTED WITH PILLOWS, HR REMAINS CAF AT A RATE OF 97, WILL CONT POC.
--- NOTE | 2017-02-02 03:10 | NUR ---
O2 SAT 99%, DECREASED TO 4L O2 VIA OXIMIZER PER RT.
[2017-02-02 04:06] LABS: BASOPHILS 0 % (0-2); EOSINOPHILS 1.5 % (0-7); HEMATOCRIT 32.6 % (42.0-54.0); HEMOGLOBIN 10.7 g/dL (13.5-17.5); IMMATURE GRANULOCYTES 0.6 % (0-5); LYMPHOCYTES 14.5 % (15-50); MCH 31.8 pg (26.0-34.0); MCHC 32.8 g/dL (31.0-37.0); MEAN PLATELET VOLUME 10.5 fL (7.4-10.4); MONOCYTES 4.4 % (2-11); PLATELET COUNT 147 10x3/uL (130-400); RBC 3.36 10x6/uL (4.20-6.10); RDW 14.4 % (11.5-14.5); WBC 5.3 10x3/uL (4.8-10.8)
[2017-02-02 04:14] LABS: CALC OSMOLALITY 278 mosm/kg (275-300); CALCIUM 7.5 mg/dL (8.5-10.1); CARBON DIOXIDE 28.6 mmol/L (21.0-32.0); CHLORIDE - SERUM 105 mmol/L (98-107); CREATININE - SERUM 0.6 mg/dL (0.6-1.3); GLUCOSE 110 mg/dL (74-106); POTASSIUM - SERUM 3.5 mmol/L (3.5-5.1); SODIUM 140 mmol/L (136-145); UREA NITROGEN 11 mg/dL (7-18); eGFR NON AFRICAN AMERICAN > 90 mL/min (90-120)
--- NOTE | 2017-02-02 05:02 | NUR ---
PT RESTING WITH EYES CLOSED, VSS, HR CAF AT A RATE OF 88, WILL CONT POC.
--- NOTE | 2017-02-02 05:17 | NUR ---
FIRST OF 2 TOTAL KCL 20 MEQ RIDERS INITIATED PER ELECTROLYTE PROTOCOL TO TREAT K+ LEVEL OF 3.5 ON AM LAB.
--- NOTE | 2017-02-02 05:58 | NUR ---
BATH AND LINEN CHANGE DONE, PT NODS HEAD "YES" WHEN ASKED IF HE IS COLD. WARM BLANKET PROVIDED PER PT COMFORT. VSS
--- NOTE | 2017-02-02 16:30 | NUR ---
SPOKE WITH REGARDING CONSULT FOR CARDIOLOGY. PATIENT DOESN'T SHOW ON HIS LIST. WILL SEE IN AM IF ANIMAL TREATMENT INVESTIGATOR RECONSULTS.
--- NOTE | 2017-02-02 17:52 | NUR ---
SPOKE WITH DR. RAINES REGARDING PATIENT RHYTHM AND DIFFERENCE HR AND PULSE RATE. ORDER REC'D TO RECONSULT DR. OCHOA TO SEE IN AM.
--- NOTE | 2017-02-02 19:00 | NUR ---
PT CONFUSED AND DISORIENTED. UNABLE TO ANSWER QUESTIONS, FOLLOWS MOST SIMPLE COMMANDS. MEDICAL WRIST RESTRAINTS IN PLACE TO PROTECT LINES/TUBES AND MAINTAIN PT SAFETY. SHALLOW RESPIRATIONS, LUNG SOUNDS CRACKLES/DIMINISHED. 2L O2 VIA NC. IRREGULAR HEART RHYTHM, PALPABLE PULSE IN THE 50'S, READING 100'S ON MONITOR. BOWEL SOUNDS HYPOACTIVE X4. BURCH CATH INTACT WITH CLEAR YELLOW URINE TO BEDSIDE DRAINAGE. NGT SECURED AND TO LIWS. PT REPOSITIONED FOR COMFORT. ROOM VISIBLE FROM NURSES STATION. CPOC.
--- NOTE | 2017-02-02 21:00 | NUR ---
NO VISITORS AT THIS TIME. NO CHANGES, DOBUTAMINE GTT INFUSING TO MAINTAIN BP. PT REPOSITIONED FOR COMFORT. ORAL CARE ADM. CPOC.
--- NOTE | 2017-02-02 23:00 | NUR ---
REASSESSMENT COMPLETE, SEE FLOWSHEET FOR ALL FINDINGS. NO NEW CHANGES AT THIS TIME. DOBUTAMINE GTT REMAINS INFUSING. PT REPOSITIONED FOR COMFORT. NO C/O PAIN AT THIS TIME. COUGH/DB ENCOURAGED, PT UNABLE. CPOC.
[2017-02-03] VITALS (53 sets, daily range): BP systolic 84–132; BP diastolic 46–86
--- NOTE | 2017-02-03 03:00 | NUR ---
REASSESSMENT COMPLETE, SEE FLOWSHEET FOR ALL FINDINGS. NO NEW CHANGES AT THIS TIME. NO C/O PAIN. PT REPOSITIONED FOR COMFORT. ROOM VISIBLE FROM NURSES STATION. CPOC.
[2017-02-03 04:43] LABS: BASOPHILS 0 % (0-2); EOSINOPHILS 1.7 % (0-7); HEMATOCRIT 31.4 % (42.0-54.0); HEMOGLOBIN 10.2 g/dL (13.5-17.5); IMMATURE GRANULOCYTES 0.9 % (0-5); LYMPHOCYTES 13.9 % (15-50); MCH 31.4 pg (26.0-34.0); MCHC 32.5 g/dL (31.0-37.0); MCV 96.6 fL (80.0-100.0); MEAN PLATELET VOLUME 10.1 fL (7.4-10.4); MONOCYTES 4.1 % (2-11); NEUTROPHILS 79.4 % (40-80); PLATELET COUNT 167 10x3/uL (130-400); RBC 3.25 10x6/uL (4.20-6.10); RDW 14.4 % (11.5-14.5); WBC 4.7 10x3/uL (4.8-10.8)
[2017-02-03 04:53] LABS: CALC OSMOLALITY 276 mosm/kg (275-300); CARBON DIOXIDE 30.8 mmol/L (21.0-32.0); CHLORIDE - SERUM 105 mmol/L (98-107); CREATININE - SERUM 0.5 mg/dL (0.6-1.3); GLUCOSE 124 mg/dL (74-106); POTASSIUM - SERUM 3.8 mmol/L (3.5-5.1); SODIUM 139 mmol/L (136-145); eGFR NON AFRICAN AMERICAN > 90 mL/min (90-120)
[2017-02-03 04:54] LABS: UREA NITROGEN 8 mg/dL (7-18)
--- NOTE | 2017-02-03 08:04 | NUR ---
TO XRAY VIA BED WITH PORTABLE O2 AND EBAY RESELLER.
--- NOTE | 2017-02-03 19:30 | NUR ---
REPORT RECIEVED ASSESSMENT COMPLETED. SEE FLOW SHEET FOR FURTHER DETAILS. PT POSITIONED FOR COMFORT. BED IN LOW POSITION. WILL CONTINUE TO MONITOR PT.
--- NOTE | 2017-02-03 21:00 | NUR ---
NO VISITORS AT THIS TIME. PT REPOSITIONED FOR COMFORT. NG CANISTER REPLACED. WILL CONTINUE TO MONITOR PT.
--- NOTE | 2017-02-03 23:00 | NUR ---
REASSESSMENT COMPLETED. SEE FLOW SHEET FOR DETAILS. NO ACUTE CHANGES AT THIS TIME. PT POSITIONED FOR COMFORT WILL CONTINUE TO MONITOR PT.
[2017-02-04] VITALS (10 sets, daily range): BP systolic 101–136; BP diastolic 48–97
--- NOTE | 2017-02-04 01:03 | NUR ---
DANN'D NTUBE PER ORDERS OF . RESTRAINTS REMOVED. WILL CONTINUE TO MONITOR PT.
--- NOTE | 2017-02-04 03:00 | NUR ---
REASSESSMENT COMPLETED. NO CHNAGES AT THIS TIME. SEE FLOW SHEET FOR DETAILS. PT POSITIONED FOR COMFORT, WILL CONTINUE TO MONITOR.
--- NOTE | 2017-02-04 05:00 | NUR ---
POSITIONED PT FOR COMFORT. PT SHOWS NO SIGNS OF DISTRESS. WILL CONTINUE TO MONITOR PT.
[2017-02-04 06:17] LABS: BASOPHILS 0.2 % (0-2); EOSINOPHILS 1.9 % (0-7); HEMATOCRIT 36.5 % (42.0-54.0); HEMOGLOBIN 11.8 g/dL (13.5-17.5); IMMATURE GRANULOCYTES 1.2 % (0-5); LYMPHOCYTES 13.5 % (15-50); MCH 30.9 pg (26.0-34.0); MCHC 32.3 g/dL (31.0-37.0); MCV 95.5 fL (80.0-100.0); MEAN PLATELET VOLUME 10.4 fL (7.4-10.4); MONOCYTES 4.7 % (2-11); NEUTROPHILS 78.5 % (40-80); RBC 3.82 10x6/uL (4.20-6.10); RDW 14.4 % (11.5-14.5)
[2017-02-04 06:21] LABS: PLATELET COUNT 230 10x3/uL (130-400); WBC 5.9 10x3/uL (4.8-10.8)
[2017-02-04 06:30] LABS: CALCIUM 8.2 mg/dL (8.5-10.1); CARBON DIOXIDE 32.1 mmol/L (21.0-32.0); CHLORIDE - SERUM 103 mmol/L (98-107); GLUCOSE 122 mg/dL (74-106); MAGNESIUM - SERUM 1.6 mg/dL (1.8-2.4); PHOSPHOROUS 2.9 mg/dL (2.5-4.9); POTASSIUM - SERUM 3.5 mmol/L (3.5-5.1); SODIUM 141 mmol/L (136-145)
[2017-02-04 06:31] LABS: CALC OSMOLALITY 280 mosm/kg (275-300); CREATININE - SERUM 0.7 mg/dL (0.6-1.3); UREA NITROGEN 11 mg/dL (7-18); eGFR NON AFRICAN AMERICAN > 90 mL/min (90-120)
--- NOTE | 2017-02-04 08:02 | NUR ---
Nutrition consult: RDN received consult from Dr. Craft to begin TPN today. Chart reviewed and order for TPN sent to pharmacy. RDN following.
--- NOTE | 2017-02-04 14:11 | NUR ---
PT RECEIVED TO ROOM FROM ICU. RR EVEN AND UNLABORED, PT DENIES NEEDS AT THIS TIME. FAMILY AT BEDSIDE. PT ORIENTED TO ROOM, VSS. WILL CTM.
[2017-02-04 15:04] LABS: MAGNESIUM - SERUM 1.9 mg/dL (1.8-2.4)
[2017-02-04 15:06] LABS: POTASSIUM - SERUM 4.1 mmol/L (3.5-5.1)
--- NOTE | 2017-02-04 18:21 | NUR ---
SPOKE TO PHARMACY REGARDING LIPIDS NOT PRIMING IN FILTER TUBING. MOOKIE FROM PHARMACY TOLD ME TO USE PRIMARY TUBING. WILL GIVE TO PT AND CTM.
--- NOTE | 2017-02-04 18:45 | NUR ---
PT RESTING QUIETLY, RR EVEN AND UNLABORED. PT DENIES NEEDS AT THIS TIME, DOES NOT SPEAK FREQUENTLY. WILL GIVE REPORT ON PT CONDTION FOR THE DAY.
--- NOTE | 2017-02-05 01:55 | NUR ---
PT IN BED WITH HOB UP FOR COMFORT. EYES CLOSED. CHEST RISING AND FALLING. DNR. MARCIN. FSBS Q6H. SCD'S. NPO EXCEPT ICE CHIPS. DENTURES. ELECTROLYTE PROTOCOL. TELEMETRY. BLIND IN LEFT EYE. NO O2. RIGHT SUBCLAVIAN D10 @ 30 ML/HR. TPN @ 40ML/HR. BED IN LOWEST POSITION AND CALL LIGHT WITHIN REACH.
[2017-02-05 02:05] VITALS: BP 107/59
[2017-02-05 05:05] LABS: BASOPHILS 0.2 % (0-2); EOSINOPHILS 1.6 % (0-7); HEMATOCRIT 33.6 % (42.0-54.0); IMMATURE GRANULOCYTES 0.7 % (0-5); LYMPHOCYTES 15.4 % (15-50); MCHC 32.7 g/dL (31.0-37.0); MCV 94.6 fL (80.0-100.0); MEAN PLATELET VOLUME 10.2 fL (7.4-10.4); MONOCYTES 3.8 % (2-11); NEUTROPHILS 78.3 % (40-80); PLATELET COUNT 211 10x3/uL (130-400); RBC 3.55 10x6/uL (4.20-6.10); RDW 14.6 % (11.5-14.5); WBC 6.1 10x3/uL (4.8-10.8)
[2017-02-05 05:17] LABS: CALC OSMOLALITY 280 mosm/kg (275-300); CALCIUM 7.2 mg/dL (8.5-10.1); CHLORIDE - SERUM 101 mmol/L (98-107); CREATININE - SERUM 0.7 mg/dL (0.6-1.3); GLUCOSE 162 mg/dL (74-106); POTASSIUM - SERUM 3.8 mmol/L (3.5-5.1); SODIUM 138 mmol/L (136-145); eGFR NON AFRICAN AMERICAN > 90 mL/min (90-120)
[2017-02-05 05:24] LABS: UREA NITROGEN 14 mg/dL (7-18)
[2017-02-05 07:31] LABS: MAGNESIUM - SERUM 1.8 mg/dL (1.8-2.4); PHOSPHOROUS 3.1 mg/dL (2.5-4.9)
--- NOTE | 2017-02-05 07:38 | NUR ---
AM ROUNDS - PT IS IN BED AND APPEARS TO BE SLEEPING AT THIS TIME WITH EQUAL AND NON LABORED BREATHING. MONITOR SHOWING SR WITH PVC, HR 78. RIGTH SUBCLAV CVL, TPN AT 40CC/HR, D10 AT 30CC/HR. PT IS ON ROOM AIR. SCD ARE ON AT THIS TIME. BED AT LOWEST POSTION. CALL PACHECO IN USE/REACH. SIDE RAILS UP X2. WILL CONTINEU TO MONITOR
[2017-02-05 08:00] VITALS: BP 127/64
--- NOTE | 2017-02-05 09:40 | PN ---
PATIENT:ARMAND BAILEY MEDICAL RECORD: [id number] LOCATION:D. D.213 ADMISSION DATE: 01/27/17 PROGRESS NOTE DATE OF SERVICE: 02/02/2017 CHIEF COMPLAINT: None. SUBJECTIVE: He is really unable to provide me with much history. I flushed both lumens on the nasogastric tube. They are patent. He is having a significant amount of nasogastric tube output. It is bilious. He is having some abdominal tenderness. It is mainly in the epigastrium as well as in the periumbilical area. Palpation aggravates. Nothing alleviates. He has had no return of bowel function. He is having significant cardiac rhythm issues. He is only perfusing about every other beat. He is on dobutamine. Cardiology has been consulted. I note no incarcerated hernias. I am more in favor of an ileus than a small-bowel obstruction. I am going to obtain a Gastrografin small bowel follow through, which may be diagnostic as well as therapeutic. This is a progress note addendum. For the typed portion of the progress note, please see the chart. This would include past medical and surgical history, allergies, current medications, social history, as well as family history. REVIEW OF SYSTEMS: Unreliable due to confusion. PHYSICAL EXAMINATION: GENERAL: The patient appears acutely ill. Also appears chronically ill. VITAL SIGNS: Reviewed. EARS: External ears appear normal. EYES: Extraocular movements are intact. NECK: Trachea is midline. CHEST: No intercostal retractions. PULMONARY: Nonlabored, no stridor. ABDOMEN: Tenderness as described above. No peritonitis to percussion. EXTREMITIES: No peripheral cyanosis. INTEGUMENT: There is an intertriginous rash. BACK: Thoracic kyphosis is present. LYMPHATIC: No lymphangitic streaking of the exposed extremities. PSYCHIATRIC: Anxious affect. NEUROLOGIC: Does not answer questions appropriately. IMPRESSION: Ileus versus small-bowel obstruction, leaning more toward an ileus. PLAN: Small bowel follow through with Gastrografin down through the nasogastric tube. TRANSINT:[id number] Voice Confirmation ID: [id number] DOCUMENT ID: [id number] PROGRESS NOTE [id number] ARMAND BAILEY DALY REDDY MD at 0940 CC: [id number] DICTATION DATE: 02/02/17 1537 CASE PACKER AND SEALER: 02/02/17 1827 ADM IN [facility] [address] [id number]
--- NOTE | 2017-02-05 09:40 | PN ---
PATIENT:ARMAND BAILEY MEDICAL RECORD: [id number] LOCATION:D.[facility].213 ADMISSION DATE: 01/27/17 PROGRESS NOTE DATE OF SERVICE: 02/03/2017 PROGRESS NOTE ADDENDUM CHIEF COMPLAINT: Better. The patient is confused. I have reviewed the small bowel followthrough images. I have reviewed the radiologist's report. His abdomen is nontender. It is not distended. I am going to start the patient on some total parenteral nutrition. The history is unreliable from the patient as is the review of systems due to confusion. His abdomen appears to be nontender today. Nothing aggravates. Nothing alleviates. This is progress note addendum. For the typed portion of the progress note, please see the chart. This would include past medical and surgical history, current medications, allergies, and social history as well as family history. REVIEW OF SYSTEMS: Unreliable due to the patient's confusion. PHYSICAL EXAMINATION: GENERAL: The patient does not appear acutely ill. He does appear chronically ill. VITAL SIGNS: Reviewed. EARS: External ears appear normal. EYES: Extraocular movements are intact. NECK: Trachea is midline. CHEST: No intercostal retractions. PULMONARY: Mildly labored. No stridor. ABDOMEN: Nontender and nondistended. GENITOURINARY: No incarcerated inguinal hernias. PSYCHIATRIC: Anxious affect. NEUROLOGIC: Confused. He does not answer questions appropriately. BACK: Thoracic kyphosis is noted. LYMPHATIC: No lymphangitic streaking of the exposed extremities. IMPRESSION: Resolving ileus. PLAN: Start him on TPN. Dr. Wilson returns tomorrow. TRANSINT:[id number] Voice Confirmation ID: [id number] DOCUMENT ID: [id number] PROGRESS NOTE [id number] LEOARMAND CHANEL BARRY, DALY NEGRON at 0940 CC: [id number] DICTATION DATE: 02/04/17 1530 SUPERVISOR RIPRAP PLACING: 02/04/17 1730 ADM IN [id number] [place] [address]
[2017-02-05 12:00] VITALS: BP 124/74
[2017-02-05 15:21] LABS: FUNGUS CULTURE RESULT 1 Candida albicans (())
--- NOTE | 2017-02-05 16:49 | NUR ---
PT IN BED AND APPEARS TO BE SLEEPING WITH EQUAL AND NON LABORED BREATHING AT THIS TIME. PT REFUSED A FINGER STICK BLOOD SUGAR AND A SUPPOSITORY EARLIER. WILL CONTINUE TO MONITOR
[2017-02-05 17:10] VITALS: BP 149/62
--- NOTE | 2017-02-06 03:29 | NUR ---
NURSE ROUNDS 19:00 - DAY SHIFT NURSES GET SNYDER AND LIMA WERE PASSING PTS ROOM AND NOTICED PT HAD VOMITED AND POSSIBLY ASPIRATED, HE BREATHING BECAME LABORED WITH AUDIBLE WHEEZING. THEY CLEANED PT UP AND CHANGED HIS GOWN, REPOSITIONED PT AND NOTIFIED ME, I WAS STARTING MY SHIFT. UPON ENTERING PTS ROOM IMMEDIATELY FOLLOWING NOTIFICATION, PT WAS FOUND AWAKE, HOWEVER, NON-VERBAL AND DIFFICULT TO COMMUNICATE WITH. PT DEMONSTRATED GENERAL MALAISE, BUT HE WOULD LOOK AT ME WHEN I SPOKE TO HIM. I HAVE FOLLOWED PT CLOSELY THROUGH THIS SHIFT, HAVE REPOSITIONED PT TWICE, HAS MAINTAINED PTS HOB @ LEAST 35-40 DEGREES BEFORE PT WOULD BEGIN MOANING AND GRIMACING. PTS V/S @ 0300 ARE 48/34, PULSE 85, RESPIRATIONS 27, O2 SAT 70% ON 2 LPM VIA NC, TEMP 98.1, AND FSBS OF 127. PT HAS NOT VOMITED SINCE THE FIRST TIME @ SHIFT CHANGE. I HAVE CALLED PTS FAMILY, MRS. PATITO BAILEY @ [phone] @ 03:25 TO NOTIFY HER OF PTS CONDITION, IN WHICH SHE STATED SHE WOULD COME IMMEDIATELY. PT HAS HAD RUNS OF V-TACH ON TELEMETRY, ALONG WITH PVC'S, AND COUPLETS. DUE TO PTS DNR STATUS, I WILL CONTINUE TO MAKE PT COMFORTABLE POSSIBLE. WILL CONTINUE TO MONITOR PT CLOSELY. OF HER HUSBANDS SULEMA
[2017-02-06 04:39] VITALS: BP 48/34
--- NOTE | 2017-02-06 04:54 | NUR ---
PTS ARRIVED @ APPROXIMATELY 0400 AND REMAINS AT HER HUSBANDS SIDE AT THIS TIME. I EXPLAINED TO MRS. PATITO BAILEY THE EVENTS THAT HAVE TAKEN PLACED DURING THIS SHIFT WITH PT. I DID OFFER A DATA WAREHOUSE ANALYST, IN WHICH SHE DECLINED. PT HAS BECOME UNRESPONSIVE, EYES FIXED, PT DEMONSTRATES GUPPY BREATHING, IS MOTTLED. WILL CONTINUE TO MONITOR PT CLOSELY.
--- NOTE | 2017-02-06 06:23 | NUR ---
PTS CAME OUT STATING THAT PT HAS STOPPED BREATHING. UPON ENTERING ROOM, PT WAS FOUND UNRESPONSIVE, NO PULSE, AND NO RESPIRATIONS. I OFFERED PTS A VISIT FROM THE FACILITY TECHNICIAN ONCE AGAIN, IN WHICH THIS TIME SHE DID ACCEPT. I HAVE CALLED THE NUMBER LISTED FOR MR. NESBITT, FACILITY TECHNICIAN FOR HOSPITAL AND DID LEAVE A VOICE MESSAGE EXPLAINING MY CALL, MY NAME, AND CALL BACK NUMBER. THE FAMILY REQUESTS [facility], AND GAVE ME THE BUSINESS CARD FOR THEM. I HAVE NOTIFIED MIGUEL TAYLOR, INDIAN BLANKET WEAVER. I HAVE CALLED [facility] HEAD OF QUALITY TO NOTIFY PHYSICIAN. MORE FAMILY IS ARRIVING AT THIS TIME. WILL CONTINUE TO GIVE SUPPORTIVE CARE TO PTS FAMILY.
--- NOTE | 2017-02-06 08:30 | NUR ---
PT IS AND HAS BEEN PICKED UP BY THE HOME.
--- NOTE | 2017-02-06 08:38 | NUR ---
[facility] DONE ZULEYKA CAMACHO, RN AND GET SNYDER RN. RIGHT SUBCLAV CVL D/C. BURCH D/C. WILL D/C
--- NOTE | 2017-02-06 12:12 | CN ---
PATIENT NAME:ARMAND SIMMONS MEDICAL RECORD: [id number] : 30 LOCATION:D. D.2137 ADMIT DATE: 01/27/17 ACCOUNT: [id number] CONSULTING PHYSICIAN: PATRICIA GALAN MD REFERRING PHYSICIAN: GLADYS MATTSON DO DATE OF CONSULTATION: 01/27/2017 CONSULT REQUESTING PHYSICIAN: Gladys Mattson DO REASON FOR CONSULTATION: Hypotension and acute mental status changes. HISTORY OF PRESENT ILLNESS: Mr. Simmons is an 86-year-old gentleman who is now confused. History is taken mainly by talking to Dr. Mattson as well as reviewing the patient's notes. Mr. Simmons is an 86-year-old gentleman who was brought into the ER with mental status changes. We found out the patient has atrial fibrillation, acute renal failure, and metabolic acidosis. Also, he has elevated cardiac enzymes. The patient was started on Levophed as well as dobutamine and some IV fluid was given. He has a chest radiograph which showed questionable crescent sign with free air under the right hemidiaphragm. The KUB film showed that he has air-fluid level with ileus. REVIEW OF THE SYSTEMS: Mainly in the history of present illness. PAST MEDICAL HISTORY: 1. COPD. 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 3. History of CA of the prostate. 4. Abdominal hernia. 5. Gastroesophageal reflux disease. 6. Coronary artery disease. 7. History of CVA times 2. PAST SURGICAL HISTORY: 1. He had a CABG in 2009. 2. Herniorrhaphy. ALLERGIES: There are no known drug allergies. MEDICATIONS: [facility] was reviewed. PERSONAL AND SOCIAL HISTORY: The patient is . He is an ex-smoker. He is nondrinker. FAMILY HISTORY: Noncontributory. PHYSICAL EXAMINATION: GENERAL: Now, the patient is lying comfortably in bed. He is not in acute distress. VITAL SIGNS: The blood pressure is 83 to 90 over 57, pulse is 125 to 135 and irregular, and SpO2 is 97% on 100% nonrebreather. HEENT: Conjunctivae are pink. Sclerae nonicteric. NECK: Neck is supple. There is no JVD. CHEST: There is no wheeze and no rale. HEART: On examination of the heart, rate and rhythm irregular. Normal sound. No murmur. CONSULT REPORT [id number] ARMAND SIMMONS ABDOMEN: Abdomen is not distended, but is tender on deep palpation. There is no guarding and no rigidity. RECTAL: Deferred. EXTREMITIES: No cyanosis. No clubbing. No pedal edema. SKIN: Poor turgor. CENTRAL NERVOUS SYSTEM: The patient is awake and alert, but he is confused. CHEST RADIOGRAPH: There is prominent interstitial and alveolar lung marking, possible with pulmonary edema. There is left basilar atelectasis with chronic elevation of the left hemidiaphragm. There is possible air under the right hemidiaphragm. OTHER LABORATORY DATA: CBC; WBC 7.7, hemoglobin 15.4, hematocrit 45, and platelet count 228. Neutrophils are 92.8%. Chemistry; sodium 145, potassium 5.1, chloride 104, bicarb is 20.5, BUN is 98, and creatinine 2.9. Liver enzymes normal. Troponin 0.20 and CK is 322. ABG; the pH is 7.48, pCO2 is 22.9, pO2 is 78, and bicarb is 17.1. The lactic acid level is 5.21. IMPRESSION: 1. Acute mental status changes, which is multifactorial metabolic encephalopathy. The ammonia level is 11. 2. Acute hypoxic respiratory failure, possible pulmonary edema, possible pneumonia. 3. Metabolic acidosis secondary to lactic acidosis. 4. Acute renal failure, possible acute tubular necrosis. 5. Shock, possible hypovolemic. Rule out septic shock. 6. Free under the diaphragm, possible perforated viscus. 7. Ileus, small bowel obstruction. 8. Atrial fibrillation with rapid ventricular response. 9. Elevated cardiac enzyme. Rule out acute coronary syndrome. RECOMMENDATION: 1. Start IV fluid resuscitation. 2. Continue the pressors to keep the systolic pressure above 90. 3. Keep the CVP 12-12. 4. Flagyl IV, cefepime IV, and Levaquin IV. 5. Check the blood culture. 6. Consult surgery. 7. Consult nephrology. Supplemental oxygen as required. The patient is DNI. Dr. Mattson, thank you for involving me in the care of Mr. Simmons. TRANSINT:[id number] Voice Confirmation ID: [id number] DOCUMENT ID: [id number] PATRICIA GALAN MD at 1212 CC: GLADYS MATTSON DO [id number] DICTATION DATE: 01/27/17 1508 INTERNET CONSULTANT: 01/27/17 1635 DIS IN 02/06/17 [facility] [address] [id number]
--- NOTE | 2017-02-11 10:11 | NUR ---
Per CMS protocol, restraint report logged into data base.
[2017-02-24 15:08] LABS: FUNGUS MYCOLOGY CULTURE Final report (())
[2017-03-22 12:13] LABS: ACID FAST CULTURE Negative (())
== END 2017-02-06 08:41 | DRG 871 ==
LOC: D.ER 01:20 → D.M2 05:42 → D.CVICU 05:42 → D.M2 02-04 13:51
PROVIDERS: Emergency Medicine; Family Medicine; Internal Medicine Nephrology; Internal Medicine Pulmonary Disease; Surgery; ADMIT Family Medicine
PROC: 02HV33Z Insertion of Infusion Device into Superior Vena Cava, Percutaneous Approach (ICD-10-PCS; principal; 2017-01-27)
PROC: 0T9B70Z Drainage of Bladder with Drainage Device, Via Natural or Artificial Opening (ICD-10-PCS; 2017-01-27)
PROC: 0D9670Z Drainage of Stomach with Drainage Device, Via Natural or Artificial Opening (ICD-10-PCS; 2017-01-27)
PROC: 0BDB8ZX Extraction of Left Lower Lobe Bronchus, Via Natural or Artificial Opening Endoscopic, Diagnostic (ICD-10-PCS; 2017-01-29)
PROC: 0BD48ZX Extraction of Right Upper Lobe Bronchus, Via Natural or Artificial Opening Endoscopic, Diagnostic (ICD-10-PCS; 2017-01-29)
PROC: 0BD88ZX Extraction of Left Upper Lobe Bronchus, Via Natural or Artificial Opening Endoscopic, Diagnostic (ICD-10-PCS; 2017-01-29)
PROC: 0BD58ZX Extraction of Right Middle Lobe Bronchus, Via Natural or Artificial Opening Endoscopic, Diagnostic (ICD-10-PCS; 2017-01-29)
PROC: 0BD38ZX Extraction of Right Main Bronchus, Via Natural or Artificial Opening Endoscopic, Diagnostic (ICD-10-PCS; 2017-01-29)
PROC: 0BD78ZX Extraction of Left Main Bronchus, Via Natural or Artificial Opening Endoscopic, Diagnostic (ICD-10-PCS; 2017-01-29)
PROC: 0BDH8ZX Extraction of Lung Lingula, Via Natural or Artificial Opening Endoscopic, Diagnostic (ICD-10-PCS; 2017-01-29)
PROC: 0BD68ZX Extraction of Right Lower Lobe Bronchus, Via Natural or Artificial Opening Endoscopic, Diagnostic (ICD-10-PCS; 2017-01-29)
DX: A41.9 Sepsis, unspecified organism (principal); J96.01 Acute respiratory failure with hypoxia; G93.41 Metabolic encephalopathy; N17.0 Acute kidney failure with tubular necrosis; J69.0 Pneumonitis due to inhalation of food and vomit; I50.21 Acute systolic (congestive) heart failure; J44.0 Chronic obstructive pulmonary disease with (acute) lower respiratory infection; E87.0 Hyperosmolality and hypernatremia; K56.7 Ileus, unspecified; J98.11 Atelectasis; I48.91 Unspecified atrial fibrillation; I25.10 Atherosclerotic heart disease of native coronary artery without angina pectoris; K21.9 Gastro-esophageal reflux disease without esophagitis; E86.0 Dehydration; Z78.1 Physical restraint status; Z66 Do not resuscitate; K43.9 Ventral hernia without obstruction or gangrene; E87.6 Hypokalemia; Z95.5 Presence of coronary angioplasty implant and graft; Z85.46 Personal history of malignant neoplasm of prostate; Z86.73 Personal history of transient ischemic attack (TIA), and cerebral infarction without residual deficits; Z87.891 Personal history of nicotine dependence; K57.90 Diverticulosis of intestine, part unspecified, without perforation or abscess without bleeding